=== PATIENT | male | born 1955 | race Caucasian/White ===

== ENCOUNTER 2018-02-03 06:42 | Inpatient (IN) | payer BC, SELFPAY ==
[2018-01-21 14:27] VITALS: BP 133/86; PULSE 67; RESP 16; TEMP 36.6; O2SAT 97; BMI 27.2
[2018-01-21 15:15] LABS: Hemoglobin 13.3 g/dl (13.0-16.5); Mean Corp Hgb Conc 32.4 g/gl (32-36); Mean Corpuscular Hgb 30.9 pg (27.0-32.0); Mean Corpuscular Volume 95.3 fL (80-94); Platelet Count 212 K/mm3 (150-450); RBC Distribution Width CV 13.1 % (11.6-14.6); RBC Distribution Width SD 45.4 fl (35.1-43.9); White Blood Count 5.6 K/mm3 (4.4-11.0)
[2018-01-21 15:17] LABS: Scan Indicated on CBC? Y/N NO
[2018-01-21 15:35] LABS: Anion Gap 8 (5-15); BUN 19 mg/dL (7-18); BUN/Creat Ratio 19.9 RATIO (10-20); Calcium,Total 8.7 mg/dL (8.5-10.1); Chloride 104 mmol/L (98-107); Creatinine, Serum 0.96 mg/dL (0.70-1.30); EST Glomerular Filtration Rate 84 mL/min (>60); Est Glom Filt Rate - Afr Amer 102 mL/min (>60); Estimated Creatinine Clearance 85.32 ml/min; Glucose 84 mg/dL (74-106); Potassium 4.1 mmol/L (3.5-5.1); Sodium Level 138 mmol/L (136-145)
--- NOTE | 2018-01-29 10:03 | CASEMGMT ---
Attempted to contact patient regarding discharge needs after upcoming surgery. No answer, voicemail left on cell phone. Alexa Miguel LPN Clinical Support
[2018-02-03] VITALS (15 sets, daily range): BP systolic 91–133; BP diastolic 41–83; PULSE 50–79; RESP 16–18; TEMP 36.2–36.7; O2SAT 96–100; BMI 27.2
[2018-02-03] MEDS: Acetaminophen 500 MG Tablet 1000 MG PO ×3 (07:16→21:32)
[2018-02-03] MEDS: Celecoxib 200 MG Capsule 400 MG PO (07:16)
[2018-02-03] MEDS: oxyCODONE HCl Cr 10 MG Tablet PO (07:17)
[2018-02-03] MEDS: Cefazolin 2 GM in 0.9% Normal Saline 100 ML IV (08:30)
--- NOTE | 2018-02-03 09:40 | RAD_ITS ---
STUDY: X-RAY - PELVIS AND RIGHT HIP REASON FOR EXAM: Male, 62 years old. Right anterior total hip replacement. TECHNIQUE: Radiological exam, hip, unilateral, with pelvis when performed; 2 or 3 views. COMPARISON: None. FINDINGS: 3 intraoperative views were obtained. The patient is status post total hip replacement. There is good alignment. RAD/Hip 1 view with Pelvis IMPRESSION: Status post right total hip replacement. There is good alignment. Electronically Signed: Behzad Michele MD at 14:18 EDT Tel [phone], Service support ,
--- NOTE | 2018-02-03 10:06 | PCM.OPRPT ---
Report of Operation Date of Procedure: 02/03/18 Pre-Operative Diagnosis: Right hip primary osteoarthritis Post-Operative Diagnosis: Right hip primary osteoarthritis Surgery/Procedure Performed:: Right direct anterior total hip replacement Description of Surgical Findings:: Stable hip with equal leg lengths laborer hoisting: Angela Santiago laborer hoisting: Carissa Green Type of Anesthesia:: Spinal Anesthesiologist: Geovanny Holman Special Medications: 2 g Ancef, 1 g TXA at incision, 1 g TXA closure, 10 mg Decadron, joint cocktail (5 mg Duramorph, 30 mL of 0.5% Ropivicaine, 1000 units of epinephrine, 30 mg of Toradol) Specimen's removed: BONY CUTS Estimated Blood Loss (mL): 150 Fluids Replaced: 1400 ML CRYSTALLOID Description of Procedure: Components used: 1. Accolade 2 Baldemar femoral stem size 6 127? 2. Baldemar trident 2 acetabular shell size 58 mm 3. [place] X3 polyethylene f 4. [place] Biolox delta 36mm, -5mm femoral head Brief history operative indications: 62 yo M who failed conservative measures for their hip osteoarthritis. X-rays were consistent with osteoarthritis including joint space narrowing, osteophyte formation and subchondral cysts. Total hip replacement was discussed with the patient with risks and benefits including but not limited to blood loss, DVTs, PEs, neurovascular damage, dislocation, general risks of anesthesia including loss of life. Patient demonstrated an understanding medical clearance is obtained the patient was consented for surgery. Procedure: On the date of procedure the patient's R hip was marked in the preoperative area. Patient was then taken back to the operating room where anesthesia assumed control of the C-spine and airway and administered anesthetic. Patient was transferred to the operating table and placed in the supine position. The hips were placed at the break of the bed and a sacral bump was placed. The R lower extremity was then prepped out in a sterile fashion using chlorhexidine while the surgeon scrubbed. The PA was vital in the positioning of the patient. Upon reentering the room the R lower extremity was draped in the standard orthopedic fashion and the incision was marked. A timeout was called and everyone agreed upon the side, the site, the procedure be performed, antibody given, and patient's identity. At this time incision was made through skin, subcutaneous tissue, and fat down to fascia. The fascia was then incised and the TFL was retracted laterally. A retractor was placed on the lateral border of the femoral neck. Attention was directed to the inferior portion of the approach and all crossing vessels were identified and appropriately coagulated. A retractor was then placed on the medial portion of the femoral neck. The anterior capsule was then cleared of all soft tissue and then H shaped capsulotomy was made. The retractors were then placed inside the capsule. The femoral neck was identified and a cleanup cut was made. At this time a power corkscrew was used to remove the femoral head. Attention was then turned toward the acetabulum where the soft tissues were appropriately retracted and the acetabulum was sequentially reamed to 58 mm. A 58 mm cup was then selected and impacted into place. Acetabular liner was impacted into place and locking mechanism was verified. The position of the acetabular cup was then verified under live fluoroscopy. Attention was then turned to the femur. Soft tissue releases on the medial and lateral femoral neck were appropriately done, the leg was externally rotated and lateralized. A Alonso retractor was placed medially and proximally to the greater trochanter this allowed appropriate visualization and exposure of the femoral canal. Rongeour was then used to remove excess lateral bone. A canal finder and entry broach were used to open the proximal canal. Once we verified we were down the femoral canal we subsequently broached up to a size 6 femur. The appropriate neck was placed in the previously selected head was trialed with a -5 mm neck. Traction was pulled and the hip was reduced with internal rotation. Once it was appropriately reduced and stability was checked. There was minimal shuck, equal leg lengths and appropriate stability with hyperextension and external rotation as well as with 90? flexion and internal rotation. Fluoroscopy was then also used to verify the position of the components and leg lengths using the contralateral side for comparison. The trial components were then dislocated the proximal femur was again exposed and the components were removed from the wound. The final components were verified and opened. The wound was copiously irrigated out with normal saline. The acetabulum was checked for any residual debris. The final components were placed and impacted. Traction and internal rotation were again used to reduce the hip. After adequate reduction the hip remained stable with appropriate leg lengths. The final components were once again checked with live fluoroscopy and were found to be satisfactory. The wound was then copiously irrigated with normal saline once more, and hemostasis was obtained. Closure was then done using #1 Vicryl runner to close the fascia. A 2-0 vicryl interuppted sutures were used to close the subcutaneous skin. A 3-0 Monocryl and Steri-Strips were used for final skin closure. A Silverlon dressing was placed. Patient was awakened by anesthesia and transferred to the [facility]. Patient was then transferred to the PACU for recovery. Postoperative plan: Patient will get 24 hours postop antibiotics. Patient will get in-house physical therapy and will be weight-bear as tolerated. Patient will follow up in office in 2 weeks for a wound check and x-rays. Grafts/Implants Used: BALDEMAR TRIDENT 2, ACOOCLADE 2 - Complications NONE - Admit VTE Documentation VTE Present on Admission: No VTE Mechan Device Prophylaxis: SCD's, Thigh High OPHELIA Hose VTE Pharm Prophylaxis ordered?: Yes
--- NOTE | 2018-02-03 10:09 | OP.PCM_ITS ---
Report of Operation Date of Procedure: 02/03/18 Pre-Operative Diagnosis: Right hip primary osteoarthritis Post-Operative Diagnosis: Right hip primary osteoarthritis Surgery/Procedure Performed:: Right direct anterior total hip replacement Description of Surgical Findings:: Stable hip with equal leg lengths sign builder supervisor: Angela Santiago sign builder supervisor: Carissa Green Type of Anesthesia:: Spinal Anesthesiologist: Geovanny Holman Special Medications: 2 g Ancef, 1 g TXA at incision, 1 g TXA closure, 10 mg Decadron, joint cocktail (5 mg Duramorph, 30 mL of 0.5% Ropivicaine, 1000 units of epinephrine, 30 mg of Toradol) Specimen's removed: BONY CUTS Estimated Blood Loss (mL): 150 Fluids Replaced: 1400 ML CRYSTALLOID Description of Procedure: Components used: 1. Accolade 2 Baldemar femoral stem size 6 127? 2. Baldemar trident 2 acetabular shell size 58 mm 3. [place] X3 polyethylene f 4. [place] Biolox delta 36mm, -5mm femoral head Brief history operative indications: 62 yo M who failed conservative measures for their hip osteoarthritis. X-rays were consistent with osteoarthritis including joint space narrowing, osteophyte formation and subchondral cysts. Total hip replacement was discussed with the patient with risks and benefits including but not limited to blood loss, DVTs, PEs, neurovascular damage, dislocation, general risks of anesthesia including loss of life. Patient demonstrated an understanding medical clearance is obtained the patient was consented for surgery. Procedure: On the date of procedure the patient's R hip was marked in the preoperative area. Patient was then taken back to the operating room where anesthesia assumed control of the C-spine and airway and administered anesthetic. Patient was transferred to the operating table and placed in the supine position. The hips were placed at the break of the bed and a sacral bump was placed. The R lower extremity was then prepped out in a sterile fashion using chlorhexidine while the surgeon scrubbed. The PA was vital in the positioning of the patient. Upon reentering the room the R lower extremity was draped in the standard orthopedic fashion and the incision was marked. A timeout was called and everyone agreed upon the side, the site, the procedure be performed, antibody given, and patient's identity. At this time incision was made through skin, subcutaneous tissue, and fat down to fascia. The fascia was then incised and the TFL was retracted laterally. A retractor was placed on the lateral border of the femoral neck. Attention was directed to the inferior portion of the approach and all crossing vessels were identified and appropriately coagulated. A retractor was then placed on the medial portion of the femoral neck. The anterior capsule was then cleared of all soft tissue and then H shaped ca psulotomy was made. The retractors were then placed inside the capsule. The femoral neck was identified and a cleanup cut was made. At this time a power corkscrew was used to remove the femoral head. Attention was then turned toward the acetabulum where the soft tissues were appropriately retracted and the acetabulum was sequentially reamed to 58 mm. A 58 mm cup was then selected and impacted into place. Acetabular liner was impacted into place and locking mechanism was verified. The position of the acetabular cup was then verified under live fluoroscopy. Attention was then turned to the femur. Soft tissue releases on the medial and lateral femoral neck were appropriately done, the leg was externally rotated and lateralized. A Alonso retractor was placed medially and proximally to the greater trochanter this allowed appropriate visualization and exposure of the femoral canal. Rongeour was then used to remove excess lateral bone. A canal finder and entry broach were used to open the proximal canal. Once we verified we were down the femoral canal we subsequently broached up to a size 6 femur. The appropriate neck was placed in the previously selected head was trialed with a -5 mm neck. Traction was pulled and the hip was reduced with internal rotation. Once it was appropriately reduced and stability was checked. There was minimal shuck, equal leg lengths and appropriate stability with hyperextension and external rotation as well as with 90? flexion and internal rotation. Fluoroscopy was then also used to verify the position of the components and leg lengths using the contralateral side for comparison. The trial components were then dislocated the proximal femur was again exposed and the components were removed from the wound. The final components were verified and opened. The wound was copiously irrigated out with normal saline. The acetabulum was checked for any residual debris. The final components were placed and impacted. Traction and internal rotation were again used to reduce the hip. After adequate reduction the hip remained stable with appropriate leg lengths. The final components were once again checked with live fluoroscopy and were found to be satisfactory. The wound was then copiously irrigated with normal saline once more, and hemostasis was obtained. Closure was then done using #1 Vicryl runner to close the fascia. A 2-0 vicryl interuppted sutures were used to close the subcutaneous skin. A 3-0 Monocryl and Steri-Strips were used for final skin closure. A Silverlon dressing was placed. Patient was awakened by anesthesia and transferred to the [facility]. Patient was then transferred to the PACU for recovery. Postoperative plan: Patient will get 24 hours postop antibiotics. Patient will get in-house physic al therapy and will be weight-bear as tolerated. Patient will follow up in office in 2 weeks for a wound check and x-rays. Grafts/Implants Used: BALDEMAR TRIDENT 2, ACOOCLADE 2 - Complications NONE - Admit VTE Documentation VTE Present on Admission: No VTE Mechan Device Prophylaxis: SCD's, Thigh High OPHELIA Hose VTE Pharm Prophylaxis ordered?: Yes
--- NOTE | 2018-02-03 10:45 | RAD_ITS ---
STUDY: X-RAY - PELVIS AND RIGHT HIP REASON FOR EXAM: Male, 62 years old. Right total hip replacement. TECHNIQUE: Radiological exam, hip, unilateral, with pelvis when performed; 2 or 3 views. COMPARISON: Comparison is made with prior study done earlier today. FINDINGS: The patient is status post right total hip replacement. There is good alignment. Postoperative soft tissue changes. RAD/Hip Min 2 Views (Portable) IMPRESSION: Status post right total hip replacement. There is good alignment. Postoperative soft tissue changes. Electronically Signed: Behzad Michele MD at 15:22 EDT Tel [phone], Service support ,
[2018-02-03] MEDS: Famotidine 20 MG Tablet PO (13:23)
[2018-02-03] MEDS: Senna/Docusate Sodium 1 Tablet 2 TABLET PO ×2 (13:24→21:32)
[2018-02-03] MEDS: Lactated Ringers 1,000 ML 125 ML IV ×2 (13:24→21:35)
[2018-02-03] MEDS: 0.9% NaCl Peripheral Flush Adult/Peds IV (16:32)
[2018-02-03] MEDS: Meloxicam 7.5 MG Tablet PO (16:32)
[2018-02-03] MEDS: Cefazolin 1 GM/50 ML BAG IV (16:32)
[2018-02-03] MEDS: Aspirin 81 MG TAB.CHEW PO (16:32)
[2018-02-03] MEDS: oxyCODONE 5 MG Tablet PO (21:33)
[2018-02-03] MEDS: Atorvastatin Calcium 10 MG Tablet PO (21:33)
[2018-02-04] MEDS: Cefazolin 1 GM/50 ML BAG IV (01:17)
[2018-02-04] MEDS: oxyCODONE 5 MG Tablet PO ×2 (04:38→11:17)
[2018-02-04] MEDS: Ondansetron 4 MG/2 ML Vial IV (04:41)
[2018-02-04] MEDS: Acetaminophen 500 MG Tablet 1000 MG PO (05:02)
[2018-02-04 05:14] VITALS: BP 103/61; PULSE 65; RESP 16; TEMP 37.1; O2SAT 97
[2018-02-04 06:53] LABS: Hematocrit 35.5 % (40-54); Hemoglobin 11.6 g/dl (13.0-16.5); Mean Corp Hgb Conc 32.7 g/gl (32-36); Mean Corpuscular Hgb 31.5 pg (27.0-32.0); Mean Corpuscular Volume 96.5 fL (80-94); Mean Platelet Vol. 10.2 fl (6.2-12.0); Platelet Count 206 K/mm3 (150-450); RBC Distribution Width CV 13.1 % (11.6-14.6); RBC Distribution Width SD 44.6 fl (35.1-43.9); Red Blood Count 3.68 M/mm3 (4.6-6.2)
[2018-02-04 07:03] LABS: Scan Indicated on CBC? Y/N NO
[2018-02-04 07:05] LABS: Anion Gap 7 (5-15); BUN 17 mg/dL (7-18); BUN/Creat Ratio 19.2 RATIO (10-20); Calcium,Total 7.9 mg/dL (8.5-10.1); Chloride 108 mmol/L (98-107); Creatinine, Serum 0.88 mg/dL (0.70-1.30); EST Glomerular Filtration Rate 92 mL/min (>60); Est Glom Filt Rate - Afr Amer 112 mL/min (>60); Estimated Creatinine Clearance 93.08 ml/min; Glucose 106 mg/dL (74-106); Potassium 4.1 mmol/L (3.5-5.1); Sodium Level 141 mmol/L (136-145)
[2018-02-04 07:26] VITALS: PULSE 70
[2018-02-04] MEDS: Meloxicam 7.5 MG Tablet PO (07:32)
[2018-02-04] MEDS: Famotidine 20 MG Tablet PO (07:32)
[2018-02-04] MEDS: Senna/Docusate Sodium 1 Tablet 2 TABLET PO (07:32)
[2018-02-04] MEDS: Aspirin 81 MG TAB.CHEW PO (07:32)
--- NOTE | 2018-02-04 08:45 | PCM.PN.ORT ---
Subjective: The patient was sitting in bedside chair upon examination. Patient denies any chest pain, shortness of breath, dizziness, lightheadedness, nausea or vomiting, or calf pain. Pain is controlled on medications. No adverse overnight events. Overall patient is doing very well and is wishing to go home today. Patient has outpatient physical therapy already set up. Objective: Vital signs stable and afebrile. Patient is able to plantarflex and dorsiflex actively. Sensation is intact to light touch to saphenous, sural, superficial and deep peroneal, and tibial distribution. Dressing is clean dry and intact. Negative Homans bilaterally, negative signs and symptoms of DVT. - Physical Exam General: Alert, Oriented x3, Cooperative, No apparent distress Vital Signs Temp Pulse Resp BP Pulse Ox 98.8 F 70 16 103/61 97 02/04/18 05:14 02/04/18 07:26 02/04/18 05:14 02/04/18 05:14 02/04/18 05:14 Oxygen Delivery Method Room Air Weight: 91.2 kg Body Mass Index (BMI) 27.2 Intake and Output for Last 24 Hours 02/02/18 02/03/18 02/04/18 23:59 23:59 23:59 Intake Total 2773 / 2773 1238 / 1238 Balance 2773 / 2773 1238 / 1238 Laboratory Tests Past 24 Hrs 02/04/18 02/04/18 06:18 06:18 WBC 7.0 RBC 3.68 L Hgb 11.6 L Hct 35.5 L MCV 96.5 H MCH 31.5 MCHC 32.7 RDW 13.1 RDW Differential 44.6 H Plt Count 206 MPV 10.2 Sodium 141 Potassium 4.1 Chloride 108 H Carbon Dioxide 26.0 Anion Gap 7 BUN 17 Creatinine 0.88 Estim Creat Clear Calc 93.08 Est GFR (MDRD) Af Amer 112 Est GFR (MDRD) Non-Af 92 BUN/Creatinine Ratio 19.2 Glucose 106 Calcium 7.9 L Medical Necessity - Tobacco Use Smoking Status: Never smoker Tobacco Use: Non-smoker Assessment/Plan 1. S/P right direct anterior total hip arthroplasty POD #1 2. Continue Pain Medications: Tylenol and OxyIR 3. DVT Prophylaxis: Aspirin 81 mg twice daily for 4 weeks 4. PT/OT: Weightbearing as tolerated 5. H & H: 11.6/35.5, asymptomatic 6. Encouraged Incentive Spirometry 7. Disposition: Orthopedically stable, plan will be for discharge home today. Patient will follow-up per postop instructions. Prescriptions will be E scribed to [facility].
--- NOTE | 2018-02-04 08:51 | DCINST_ITS ---
Discharge Diet: No Restrictions Discharge Activity: May Not Drive - while taking narcotic pain medications. May shower in (days): 1 - Turned dressing away from water Ice area for (Minutes): 20 - Every 1-2 hours while awake Weight Bearing Status: Weight bearing as tolerated Elevate: Operative Extremity Additional Activity Instructions:: Wear elastic stockings for 2 weeks. DO NOT use alcohol with narcotic pain medication. DO NOT make important decisions while taking narcotic medication. If you have problems with taking your medication (rash, itching, nausea, etc.) call the office at once. Call your doctor if your incision/area has: Increased Pain/ Swelling, Increased Redness, Foul Smelling Discharge Call your doctor if you observe: Fever of 101 or Higher Remove Dressing in (days):: 4 - Okay to remove on February 08, 2018 Additional Instructions: Follow [facility] postop instructions Allergies/Adverse Reactions: Allergies No Known Allergies Allergy (Verified 02/03/18 07:05) Medications to take at Discharge Atorvastatin Calcium [Lipitor] 10 mg PO QHS 01/21/18 Lisinopril [Zestril] 10 mg PO DAILY 01/21/18 Acetaminophen [Tylenol] 1,000 mg PO Q8 #90 tablet 02/04/18 Aspirin [Aspirin, Baby] 81 mg PO BIDCM #60 tab.chew 02/04/18 Famotidine [Pepcid] 20 mg PO DAILY #30 tablet 02/04/18 Meloxicam [Mobic] 7.5 mg PO BIDCM #60 tablet 02/04/18 Oxycodone [Oxyir] 5 - 10 mg PO Q4H PRN PRN 5 Days #60 tablet 02/04/18 Senna/Docusate Sodium [Senokot-S] 2 tablet PO BID #20 tablet 02/04/18 The following prescriptions were given: Oxycodone [Oxyir] 5 - 10 mg PO Q4H PRN PRN 5 Days #60 tablet PRN Reason: Mod-Severe Pain (-01/27) Acetaminophen [Tylenol] 1,000 mg PO Q8 #90 tablet Famotidine [Pepcid] 20 mg PO DAILY #30 tablet Aspirin [Aspirin, Baby] 81 mg PO BIDCM #60 tab.chew Meloxicam [Mobic] 7.5 mg PO BIDCM #60 tablet Senna/Docusate Sodium [Senokot-S] 2 tablet PO BID #20 tablet Primary Care Physician: Estrada Valdovinos [Primary Care Provider] - Test Results: Test results from this visit will be discussed in further detail at your follow- up appointment, if applicable. Please Follow Up With: [facility] When: 02/09/18 @ 1:00 pm with Tana Please Follow Up With: Ambrocio Ornelas PA-C When: 02/17/18 @ 1:15 pm
[2018-02-04] MEDS: Lisinopril 10 MG Tablet PO (08:58)
[2018-02-04 10:28] VITALS: BP 107/69; PULSE 65; RESP 16; TEMP 36.9; O2SAT 97
--- NOTE | 2018-02-04 11:30 | CASEMGMT ---
NEIDA CASTLE Face to Face with patient for initial transition planning/care coordination assessment. RN CORRINE introduced self and role at [facility]. Patient sitting in chair, alert and oriented. Patient willing to participate in assessment and is able to answer all questions appropriately. Care providers, pharmacy, and demographics verified. Patient wishes to discharge home and is setup with [facility] for outpatient therapy. Patient states he has no further needs or concerns at this time. CM to follow for discharge planning needs that may arise. PCP: Bonifacio Specialists: None Preferred Pharmacy: [facility] Insurance: [employer] Prescription Benefit: [employer] Living Will/HPOA: Yes Arely Rivera HPOA LNOK: Living Arrangements: Lives with in 1 story home Transportation: DME/HHC: Has walker, denies HHC Disposition Plan: Patient to discharge home with outpatient therapy, family support, and follow-up plans in place. Lou ALMEIAD, RN, CM
== END 2018-02-04 13:12 | disposition home or self-care (01) | DRG 470 ==
LOC: ACINP 06:45 → MS3 08:06
PROVIDERS: Admitting Provider Specialist; Family Provider Family Medicine; PCP Family Medicine; Visit Provider Specialist
PROC: 0SR904A Replacement of Right Hip Joint with Ceramic on Polyethylene Synthetic Substitute, Uncemented, Open Approach (ICD-10-PCS; CPT 27284; principal; 2018-02-03 08:20)
DX: M16.11 Unilateral primary osteoarthritis, right hip (principal); Z23 Encounter for immunization
CPT/HCPCS: 36415; 73501; 73502; 76000; 80048; 85027; 87077; 87081; 97110; 97162; 97166; 97530; 97802; 99251; C1776; J7120; 90686; A4216; G0463; J2405